=== PATIENT | female | born 1970 | race Caucasian/White ===

== ENCOUNTER → 2017-01-31 | Outpatient (CLI) | payer BC ==
[~2017-01-31] MED LIST: ATIVAN 1 MG1 MG PO; B&O 60MG SUPPOS60 MG R; BRINTELLIX20 MG PO; DESYREL100 MG PO; EFFEXOR75 MG PO; FLEXERIL10 MG PO; METAMUCIL PACKE1 PKT PO; NEURONTIN600 MG PO; OGEN0.625 MG PO; OXYCONTIN20 MG PO; OXYCONTIN30 MG PO; PRILOSEC20 MG PO; PROPRANOLOL HC160 MG PO; ROXICODONE 5MG (5 MG PO; ULTRAM50 MG PO
== END | disposition disaster alternative care site (69) ==
LOC: GRAD 11:12
DX: M54.9 Dorsalgia, unspecified (principal); Z98.1 Arthrodesis status; Z98.890 Other specified postprocedural states

== ENCOUNTER → 2017-01-31 | Outpatient (CLI) | payer BC | END | disposition disaster alternative care site (69) | LOC: GBCOE 07:02 | DX: Z12.31 Encounter for screening mammogram for malignant neoplasm of breast (principal) | CPT/HCPCS: G0202 ==

== ENCOUNTER → 2017-03-15 | Outpatient (CLI) | payer BC ==
--- NOTE | ~2017-03-15 | PUL ---
PATIENT'S NAME: ORIANA ESPARZA [facility] AGE: 46 Y [address] ROOM: [place] [id number] LOCATION: [facility] ADMIT DATE: 03/15/2017 Pulmonary DISCHARGE DATE: FAMILY PHYSICIAN: STEF FERRER MD ATTENDING PHYSICIAN: STEF FERRER NAME OF PROCEDURE: Home sleep DATE OF PROCEDURE: 03/15/17 TECH: LAMIN Loera SLEEP STAGE SUMMARY: The patient underwent home sleep testing using a type III device and was studied for 7 hours 53 minutes. There were 8 apneas 25 hypopneas for an apnea/hypopnea index normal at 4.2 events per hour. Oxygen saturations ranged from 81-93%. Saturations were below 88% for 1.2 minutes. Heart rate ranged from 56 to 93 beats per minute. IMPRESSION: Normal home sleep test. PLAN: Patient will receive results from the ordering provider. ESSIE VIVAR MD [facility]/ /[id number] dtt: 04/08/17 1429 Juan Miguel David E. dtd: 03/19/17 1505
== END | disposition disaster alternative care site (69) ==
LOC: GSLP 10:51
DX: G47.19 Other hypersomnia (principal); R06.83 Snoring; R06.81 Apnea, not elsewhere classified; R53.83 Other fatigue
CPT/HCPCS: G0399